=== PATIENT | male | born 1960 | race Caucasian/White ===

== ENCOUNTER 2016-04-25 19:24 | Emergency (ER) | payer SELFPAY ==
[~2016-04-25] VITALS: Ht 185.4 cm; Wt 100.0 kg
[2016-04-25 19:31] VITALS: BP 134/78; PULSE 96; RESP 18; TEMP 97.8; O2SAT 95
--- NOTE | 2016-04-25 19:57 | PD ---
HPI Chief Complaint: Alcohol/Drug Intoxication Time Seen by Provider: 19:50 Travel History International Travel<30 days: No Contact w/Intl Traveler<30days: No Traveled to known affect area: No History of Present Illness HPI 55-year-old male presents to the ED under Hart's act for evaluation. Patient is somnolent but arouses easily to voice and light touch. He is protecting his airway. He states that he had "a lot" to drink today. He endorses drinking "a lot" of alcohol every day. He is unable to provide any meaningful history. PFSH Past Medical History Hx Anticoagulant Therapy: No Anxiety: Yes Depression: Yes Cardiovascular Problems: No Chemotherapy: No Cerebrovascular Accident: No Diabetes: No Diminished Hearing: Yes Endocrine: No Gastrointestinal Disorders: Yes GERD: Yes Hepatitis: Yes ( 1979) Hypertension: Yes Neurologic: Yes Psychiatric: Yes Respiratory: No Immunizations Current: Yes Ulcer: Yes ?: Not Past Surgical History Hysterectomy: No Tonsillectomy: Yes Social History Alcohol Use: Yes (DRINKS BEER AND VODKA DAILY) Tobacco Use: Yes (1 PPD) Substance Use: Yes (CHRONIC ALCOHOL ABUSE) Allergies-Medications (Allergen,Severity, Reaction): Coded Allergies: No Known Allergies (Unverified , 11/09/15) Reported Meds & Prescriptions Reported Meds & Active Scripts Active No Active Prescriptions or Reported Medications Review of Systems ROS Limitations: Intoxication (unable to obtain a complete history secondary to intoxication) Physical Exam Narrative GENERAL: Well-nourished, well-developed Dr. Payne white male in no acute distress. SKIN: Warm and dry. HEAD: Normocephalic. Atraumatic. EYES: No scleral icterus. No injection or drainage. Pupils 4 mm and reactive bilaterally Dental: Poor dentition, multiple missing teeth. Protecting the airway. NECK: Supple, trachea midline. No JVD or lymphadenopathy. CARDIOVASCULAR: Regular rate and rhythm without murmurs, gallops, or rubs. 2+ DP and radial pulses bilaterally. RESPIRATORY: Breath sounds clear and equal bilaterally. No accessory muscle use. GASTROINTESTINAL: Abdomen soft, non-tender, nondistended. Active bowel sounds MUSCULOSKELETAL: No cyanosis, or edema. BACK: No obvious deformity. No CVA tenderness. Data Data Last Documented VS Vital Signs Date Time Temp Pulse Resp B/P Pulse Ox O2 Delivery O2 Flow Rate FiO2 04/25/16 19:31 97.8 96 18 134/78 95 Orders Valproic Acid (Depakene) (04/25/16 19:58) Drug Screen, Random Urine (04/25/16 19:58) Alcohol (Ethanol) (04/25/16 19:58) Labs Laboratory Tests Test 04/25/16 04/25/16 20:00 20:05 Urine Opiates Screen NEG Urine Barbiturates Screen NEG Urine Amphetamines Screen NEG Urine Benzodiazepines Screen NEG Urine Cocaine Screen NEG Urine Cannabinoids Screen NEG Valproic Acid (Depakene) Level 4 MCG/ML Ethyl Alcohol Level 240 MG/DL MDM Medical Decision Making Medical Screen Exam Complete: Yes Emergency Medical Condition: Yes Differential Diagnosis Acute alcohol intoxication versus alcohol dependence versus Adjustment disorder versus anxiety versus bipolar versus depression versus dementia versus electrolyte disorder versus malingering versus mood disorder versus ODD versus psychosis versus PTSD versus schizophrenia versus schizoaffective disorder versus substance-induced mood disorder versus other Narrative Course 55-year-old male presents to the ED under Hart's act for evaluation. Patient is somnolent but arouses easily to voice and light touch. He states that he had "a lot" to drink today. He endorses drinking "a lot" of alcohol every day. He is unable to provide any meaningful history. Vitals reviewed. Physical exam reveals an intoxicated white male in no acute distress. Head normocephalic, atraumatic. Pupils are 4 mm, reactive bilaterally. He does respond when questioned. He is protecting his airway. CTAB, abdomen soft, nontender. Equal distal pulses bilaterally. Tox screen negative Etoh 240 Valproic acid <4 Patient sleeping, snoring loudly on recheck. We'll continue to monitor the patient in the ED, reevaluate for sobriety before discharge. Diagnosis Primary Impression: Alcohol intoxication Qualified Code: F10.120 - Alcohol intoxication, uncomplicated Referrals: [facility] (Out patient) Additional Instructions: Seek outpatient treatment for your chronic alcoholism. Return to the ED for any urgent or emergent medical condition. Scripts No Active Prescriptions or Reported Meds Disposition: 01 DISCHARGE HOME Condition: Stable Shani Dougherty Apr 25, 2016 19:56
[2016-04-25 20:35] LABS: AMPHETAMINE, URINE NEG (NEG); BARBITURATES, URINE NEG (NEG); COCAINE, URINE NEG (NEG)
[2016-04-26 02:29] VITALS: BP 132/78; PULSE 70; RESP 18; O2SAT 99
== END 2016-04-26 06:19 | disposition home or self-care (01) ==
LOC: NEPA 19:24
DX: F10.120 Alcohol abuse with intoxication, uncomplicated (principal); I10 Essential (primary) hypertension; F17.210 Nicotine dependence, cigarettes, uncomplicated
CPT/HCPCS: 80164; 80307; 80320; 99284

== ENCOUNTER 2016-05-03 21:37 | Emergency (ER) | payer SELFPAY ==
[~2016-05-03] VITALS: Ht 185.4 cm; Wt 102.0 kg
[2016-05-03 21:40] VITALS: BP 131/83; PULSE 76; RESP 18; TEMP 97.9; O2SAT 96
--- NOTE | 2016-05-03 22:05 | PD ---
HPI Chief Complaint: Alcohol/Drug Intoxication Time Seen by Provider: 21:41 Travel History International Travel<30 days: No Contact w/Intl Traveler<30days: No Traveled to known affect area: No History of Present Illness HPI 55-year-old male arrives to the ER by EMS. He had an unsteady gait in public. He was observed to have slurred speech. He reports drinking about a liter of rum today. He started at 7 AM. His arrival time to the ER was about 9:30PM. Patient denies drug abuse. PFSH Past Medical History Hx Anticoagulant Therapy: No Anxiety: Yes Depression: Yes Cardiovascular Problems: No Chemotherapy: No Cerebrovascular Accident: No Diabetes: No Diminished Hearing: Yes Endocrine: No Gastrointestinal Disorders: Yes GERD: Yes Hepatitis: Yes ( , 1979) Hypertension: Yes Neurologic: Yes Psychiatric: Yes Respiratory: No Immunizations Current: Yes Ulcer: Yes ?: Not Past Surgical History Hysterectomy: No Tonsillectomy: Yes Social History Alcohol Use: Yes (DRINKS BEER AND VODKA DAILY) Tobacco Use: Yes (1 PPD) Substance Use: Yes (CHRONIC ALCOHOL ABUSE) Allergies-Medications (Allergen,Severity, Reaction): Coded Allergies: No Known Allergies (Unverified , 11/09/15) Reported Meds & Prescriptions Reported Meds & Active Scripts Active No Active Prescriptions or Reported Medications Review of Systems Except as stated in HPI: all other systems reviewed are Neg General / Constitutional: No: Fever, Chills Psychiatric: Positive: Substance Abuse, No: Suicidal Ideations Physical Exam Narrative GENERAL: 55-year-old male pleasant no acute distress EtOH on breath slurred speech consistent with EtOH intox SKIN: Warm and dry. HEAD: Atraumatic. Normocephalic. EYES: Pupils equal and round. No scleral icterus. No injection or drainage. ENT: No nasal bleeding or discharge. Mucous membranes pink and moist. NECK: Trachea midline. No JVD. CARDIOVASCULAR: Regular rate and rhythm. No murmur appreciated. RESPIRATORY: No accessory muscle use. Clear to auscultation. Breath sounds equal bilaterally. GASTROINTESTINAL: Abdomen soft, non-tender, nondistended. Hepatic and splenic margins not palpable. MUSCULOSKELETAL: No obvious deformities. No clubbing. No cyanosis. No edema. NEUROLOGICAL: Awake and alert. No obvious cranial nerve deficits. Motor grossly within normal limits. Slurred speech c/w EtOH intox. PSYCHIATRIC: Alcoholism. No suicidal ideation or homicidal. Data Data Last Documented VS Vital Signs Date Time Temp Pulse Resp B/P Pulse Ox O2 Delivery O2 Flow Rate FiO2 05/03/16 21:40 97.9 76 18 131/83 96 VS reviewed MDM Medical Decision Making Medical Screen Exam Complete: Yes Emergency Medical Condition: Yes Medical Record Reviewed: Yes Differential Diagnosis Alcoholism, alcohol intoxication, alcohol withdrawal syndrome Narrative Course Pt is an alcoholic who arrives intoxicated with alcohol. He drank 1L rum today like he does every day. He is speaking in full sentences now. He'll be observed here, in the Alpha pod if necessary. When ambulatory with steady gait he can leave per his own volition. Diagnosis Primary Impression: Alcohol abuse Referrals: [facility] days Additional Instructions: You have a choice when it comes to health care, and we are glad that you chose [facility]. Hopefully, we have met your expectations on today's visit. You are welcome to return to [facility] at any time, as we are committed to meeting the health care needs of our community. Med/Other Pt SpecificInfo: No Change to Meds Scripts No Active Prescriptions or Reported Meds Disposition: 01 DISCHARGE HOME Condition: David Alvarez MD May 03, 2016 22:05
== END 2016-05-04 06:23 | disposition home or self-care (01) ==
LOC: NEPC 21:37 → NEPA 05-04 06:23
DX: F10.10 Alcohol abuse, uncomplicated (principal); F32.9 Major depressive disorder, single episode, unspecified; K21.9 Gastro-esophageal reflux disease without esophagitis; I10 Essential (primary) hypertension; F17.200 Nicotine dependence, unspecified, uncomplicated
CPT/HCPCS: 99284

== ENCOUNTER 2016-05-27 17:04 | Emergency (ER) | payer SELFPAY ==
--- NOTE | 2016-05-27 19:04 | PD ---
HPI Chief Complaint: Fall Time Seen by Provider: 19:04 Travel History International Travel<30 days: No Contact w/Intl Traveler<30days: No Traveled to known affect area: No History of Present Illness HPI 55-year-old male with a history of alcohol abuse presents to the emergency room by EMS for evaluation of alcohol intoxication and head injury. Patient states that he was drinking alcohol today, unsure how much but states it was "a lot." States that he lost his balance and fell hitting the front of his head. Unsure of loss of consciousness. Complains of pain around his forehead. Also complaining of pain in his neck. Denies any numbness or tingling, weakness, vision loss, nausea, vomiting, chest pain, shortness of breath, abdominal pain. Denies any anticoagulation. No other complaints. PFSH Past Medical History Hx Anticoagulant Therapy: No Anxiety: Yes Depression: Yes Diminished Hearing: Yes Gastrointestinal Disorders: Yes GERD: Yes Hepatitis: Yes ( , 1979) Hypertension: Yes Neurologic: Yes Psychiatric: Yes Immunizations Current: Yes Ulcer: Yes Tetanus Vaccination: < 5 Years Past Surgical History Hysterectomy: No Tonsillectomy: Yes Social History Alcohol Use: Yes (pt state "A lot of Rum today" daily ETOH) Tobacco Use: Yes (1 PPD) Substance Use: Yes (CHRONIC ALCOHOL ABUSE) Allergies-Medications (Allergen,Severity, Reaction): Coded Allergies: No Known Allergies (Unverified , 05/27/16) Reported Meds & Prescriptions Reported Meds & Active Scripts Active No Active Prescriptions or Reported Medications Review of Systems Except as stated in HPI: all other systems reviewed are Neg Physical Exam Narrative GENERAL: Well-nourished and well-developed male patient in no acute distress. Smells of Etoh. SKIN: No obvious lacerations or abrasions noted. HEAD: Normocephalic and atraumatic. No hematoma or contusions noted but complaining of tenderness to palpation of forehead. EYES: No scleral icterus, injection, or drainage. PERRLA. EOMI. No hyphema present. ENT: No septal hematoma or hemotympanum noted. Oropharynx is clear and the airway is patent. NECK: Supple and the trachea is midline. No obvious deformities, crepitus, or midline tenderness noted. CARDIOVASCULAR: Regular rate and rhythm. RESPIRATORY: Breath sounds are equal bilaterally with no accessory muscle use, wheezing, rhonchi, or crackles. GASTROINTESTINAL: Abdomen is soft, non-tender, and nondistended. MUSCULOSKELETAL: No obvious deformities, swelling, cyanosis, or ecchymosis is present throughout the upper and lower extremities. Patient has full range of motion without any signs of neurovascular compromise. Strength 5/5 upper and lower extremities equal bilaterally. NEUROLOGICAL: Awake, alert, and oriented. Normal speech and gait. Cranial nerves are grossly intact. Data Data Last Documented VS Vital Signs Date Time Temp Pulse Resp B/P Pulse Ox O2 Delivery O2 Flow Rate FiO2 05/27/16 20:29 98.5 78 16 97/[address] Brain W/O Iv Contrast(Rout) (05/27/16 19:03) Ct Cerv Spine W/O Contrast (05/27/16 19:03) Apply Cervical Collar (05/27/16 19:03) MDM Medical Decision Making Medical Screen Exam Complete: Yes Emergency Medical Condition: Yes Differential Diagnosis Alcohol intoxication versus minor head injury versus contusion versus intracranial hemorrhage Narrative Course 55-year-old male is brought to the emergency department for evaluation of alcohol intoxication and head injury. Patient is afebrile, vital signs are stable. No signs of traumatic injury. Patient does appear to be intoxicated. No focal neurologic deficits. Head and cervical spine CT imaging has been ordered and is pending. Head CT is negative for any acute abnormalities. Cervical spine CT is negative for any acute abnormalities. The patient will be allowed to sleep off the alcohol here in the emergency department. He is stable for discharge once he is found to be clinically sober. Diagnosis Primary Impression: Alcohol intoxication Qualified Code: F10.120 - Alcohol intoxication, uncomplicated Referrals: [facility] Patient Instructions: Alcohol Intoxication (ED), General Instructions Additional Instructions: Decrease your alcohol intake. Follow-up with your Primary Care Physician. Return to the ED for any acute worsening of symptoms. Med/Other Pt SpecificInfo: No Change to Meds Scripts No Active Prescriptions or Reported Meds Disposition: 01 DISCHARGE HOME Condition: Stable Lakshmi Duncan May 27, 2016 19:04
--- NOTE | 2016-05-27 19:54 | RADRPT ---
EXAM DATE/TIME: 05/27/2016 19:32 [facility] COMPARISON: CT BRAIN W/O CONTRAST, November 09, 2015, 4:05. INDICATIONS : Fell and hit back of head. RADIATION DOSE: 33.07 CTDIvol (mGy) MEDICAL HISTORY : Hepatitis B. Hypertension. SURGICAL HISTORY : None. ENCOUNTER: Initial ACUITY: 1 day PAIN SCALE: 9/10 LOCATION: cranial TECHNIQUE: Multiple contiguous axial images were obtained of the head. Using automated exposure control and adj ustment of the mA and/or kV according to patient size, radiation dose was kept as low as reasonably a chievable to obtain optimal diagnostic quality images. FINDINGS: CEREBRUM: The ventricles are normal for age. No evidence of midline shift, mass lesion, hemorrhage or acute in farction. No extra-axial fluid collections are seen. POSTERIOR FOSSA: The cerebellum and brainstem are intact. The 4th ventricle is midline. The cerebellopontine angle i s unremarkable. EXTRACRANIAL: The visualized portion of the orbits is intact. SKULL: The calvaria is intact. No evidence of skull fracture. CONCLUSION: No acute disease. Lito Moore MD on May 27, 2016 at 19:52 Board Certified Radiologist. This report was verified electronically.
--- NOTE | 2016-05-27 19:56 | RADRPT ---
EXAM DATE/TIME: 05/27/2016 19:32 [facility] COMPARISON: CT CERVICAL SPINE W/O CONTRAST, November 09, 2015, 4:05. INDICATIONS : Fell and hit back of head. RADIATION DOSE: 21.39 CTDIvol (mGy) MEDICAL HISTORY : Hepatitis B. Hypertension. SURGICAL HISTORY : None. ENCOUNTER: Initial ACUITY: 1 day PAIN SCALE: 9/10 LOCATION: neck TECHNIQUE: Volumetric scanning of the cervical spine was performed. Multiplanar reconstructions in the sagittal, coronal and oblique axial planes were performed. Using automated exposure control and adjustment o f the mA and/or kV according to patient size, radiation dose was kept as low as reasonably achievable to obtain optimal diagnostic quality images. FINDINGS: Normal alignment. No prevertebral soft tissue swelling or compression deformity. The odontoid process is intact. Severe disc space narrowing at C4-5 and C5-6 with mild endplate sclerosis, osteophytosis and uncovertebral hypertrophy. Cervicothoracic junction is approximated. There is a stable lucent les ion of the C6 vertebral body level. Carotid artery calcifications are noted. No fracture or listhesis . There is a stable central disc protrusion at C4-5 and mild to moderate canal stenosis is present. T here is severe stenosis at C6-7 secondary to a diffuse disc bulge. CONCLUSION: Stable degenerative changes are seen without evidence for acute fracture. Lito Moore MD on May 27, 2016 at 19:53 Board Certified Radiologist. This report was verified electronically.
[2016-05-27 20:29] VITALS: BP 97/53; PULSE 78; RESP 16; TEMP 98.5; O2SAT 97
[2016-05-28 00:46] VITALS: BP 112/56; PULSE 63; RESP 14; O2SAT 97
[2016-05-28 06:36] VITALS: BP 118/58
== END 2016-05-28 10:05 | disposition home or self-care (01) ==
LOC: NEPE 17:04 → NEPA 05-28 10:05
DX: F10.120 Alcohol abuse with intoxication, uncomplicated (principal); R51 Headache; M54.2 Cervicalgia; H91.90 Unspecified hearing loss, unspecified ear; I10 Essential (primary) hypertension; F17.200 Nicotine dependence, unspecified, uncomplicated; Z87.19 Personal history of other diseases of the digestive system; Z86.69 Personal history of other diseases of the nervous system and sense organs; Z86.59 Personal history of other mental and behavioral disorders; W18.39XA Other fall on same level, initial encounter
CPT/HCPCS: 70450; 72125

== ENCOUNTER 2016-07-24 21:47 | Emergency (ER) | payer SELFPAY ==
[~2016-07-24] VITALS: Ht 185.4 cm; Wt 110.0 kg
[2016-07-24 21:50] VITALS: BP 133/90; PULSE 91; RESP 18; TEMP 97.7; O2SAT 97
--- NOTE | 2016-07-24 22:01 | PD ---
HPI Chief Complaint: Fall Time Seen by Provider: 21:54 Travel History International Travel<30 days: No Contact w/Intl Traveler<30days: No Traveled to known affect area: No History of Present Illness HPI 55-year-old male complains of headache, neck pain, back pain, chest wall pain. Patient states that he [place] the [place]. Patient states that he fell onto the sand from a 6 feet height. Patient states that he probably had LOC. Patient states that he has mild aching headache, neck pain, more severe low back pain. Patient states that she has mild chest wall pain. Patient denies any visual change. Patient denies any shortness of breath. Patient denies abdominal pain. Patient denies any focal weakness or numbness of extremity. Patient denies any medical problem. Patient denies any routine medication. Patient denies any history of illicit drug abuse. PFSH Past Medical History Hx Anticoagulant Therapy: No Anxiety: Yes Depression: Yes Diminished Hearing: Yes Gastrointestinal Disorders: Yes GERD: Yes Hepatitis: Yes ( 1979) Hypertension: Yes Neurologic: Yes Psychiatric: Yes Immunizations Current: Yes Ulcer: Yes Influenza Vaccination: No Past Surgical History Hysterectomy: No Tonsillectomy: Yes Social History Alcohol Use: Yes (pt state "A lot of Rum today" daily ETOH) Tobacco Use: Yes (1 PPD) Substance Use: No Allergies-Medications (Allergen,Severity, Reaction): Coded Allergies: No Known Allergies (Unverified , 07/24/16) Reported Meds & Prescriptions Reported Meds & Active Scripts Active No Active Prescriptions or Reported Medications Review of Systems General / Constitutional: No: Fever Eyes: No: Visual changes HENT: No: Headaches Cardiovascular: No: Chest Pain or Discomfort Respiratory: No: Shortness of Breath Gastrointestinal: No: Abdominal Pain Genitourinary: No: Dysuria Musculoskeletal: No: Pain Skin: No Rash Neurologic: No: Weakness Psychiatric: No: Depression Endocrine: No: Polydipsia Hematologic/Lymphatic: No: Easy Bruising Physical Exam Narrative GENERAL: Well-nourished, well-developed patient. SKIN: Focused skin assessment warm/dry. Patient has several healing abrasions on the forehead. No soft tissue swelling noted. HEAD: Normocephalic. EYES: No scleral icterus. No injection or drainage. Pupils 3 mm equal reactive. NECK: Supple, trachea midline. No JVD or lymphadenopathy. Mild to moderate tenderness on palpation paraspinal areas cervical spine. No midline tenderness. CARDIOVASCULAR: Regular rate and rhythm without murmurs, gallops, or rubs. RESPIRATORY: Breath sounds equal bilaterally. No accessory muscle use. GASTROINTESTINAL: Abdomen soft, non-tender, nondistended. MUSCULOSKELETAL: No cyanosis, or edema. BACK: Patient has moderate tenderness on palpation thoracic lumbar area, without obvious deformity. No CVA tenderness. Negative straight leg raising. Neurologic exam: Patient's is lethargic however answer questions appropriately. Patient moves all extremities well. No obvious focal neurological deficit. Data Data Last Documented VS Vital Signs Date Time Temp Pulse Resp B/P Pulse Ox O2 Delivery O2 Flow Rate FiO2 07/24/16 21:50 97.7 91 18 133/90 97 Orders Complete Blood Count With Diff (07/24/16 21:55) Comprehensive Metabolic Panel (07/24/16 21:55) Prothrombin Time / Inr (Pt) (07/24/16 21:55) Act Partial Throm Time (Ptt) (07/24/16 21:55) Chest, Single Ap (07/24/16 21:55) Pelvis, Ap Only (Routine) (07/24/16 21:55) Iv Access Insert/Monitor (07/24/16 21:55) Ecg Monitoring (07/24/16 21:55) Oximetry (07/24/16 21:55) Alcohol (Ethanol) (07/24/16 21:55) Ct Brain W/O Iv Contrast(Rout) (07/24/16 21:55) Ct Cerv Spine W/O Contrast (07/24/16 21:55) Ct Thor Spine W/O Contrast (07/24/16 21:55) Ct Lumb Spine W/O Contrast (07/24/16 21:55) Ct Thorax/ Chest W Iv Contrast (07/24/16 23:09) Iohexol 350 Inj (Omnipaque 350 Inj) (07/24/16 23:42) Labs Laboratory Tests Test 07/24/16 22:00 White Blood Count 5.4 TH/MM3 Red Blood Count 4.21 MIL/MM3 Hemoglobin 14.8 GM/DL Hematocrit 42.1 % Mean Corpuscular Volume 100.0 FL Mean Corpuscular Hemoglobin 35.2 PG Mean Corpuscular Hemoglobin 35.1 % Concent Red Cell Distribution Width 13.6 % Platelet Count 90 TH/MM3 Mean Platelet Volume 8.1 FL Neutrophils (%) (Auto) 29.4 % Lymphocytes (%) (Auto) 57.8 % Monocytes (%) (Auto) 11.8 % Eosinophils (%) (Auto) 0.5 % Basophils (%) (Auto) 0.5 % Neutrophils # (Auto) 1.6 TH/MM3 Lymphocytes # (Auto) 3.1 TH/MM3 Monocytes # (Auto) 0.6 TH/MM3 Eosinophils # (Auto) 0.0 TH/MM3 Basophils # (Auto) 0.0 TH/MM3 CBC Comment AUTO DIFF Differential Total Cells 100 Counted Neutrophils % (Manual) 24 % Band Neutrophils % 2 % Lymphocytes % 64 % Monocytes % 9 % Basophils % 1 % Neutrophils # (Manual) 1.4 TH/MM3 Differential Comment FINAL DIFF MANUAL Atypical Lymphocytes % Platelet Estimate LOW Platelet Morphology Comment NORMAL Prothrombin Time 11.2 SEC Prothromb Time International 1.0 RATIO Ratio Activated Partial 26.8 SEC Thromboplast Time Sodium Level 141 MEQ/L Potassium Level 3.5 MEQ/L Chloride Level 105 MEQ/L Carbon Dioxide Level 24.0 MEQ/L Anion Gap 12 MEQ/L Blood Urea Nitrogen 6 MG/DL Creatinine 0.93 MG/DL Estimat Glomerular Filtration 85 ML/MIN Rate Random Glucose 108 MG/DL Calcium Level 8.1 MG/DL Total Bilirubin 0.4 MG/DL Aspartate Amino Transf 54 U/L (AST/SGOT) Alanine Aminotransferase 34 U/L (ALT/SGPT) Alkaline Phosphatase 85 U/L Total Protein 8.1 GM/DL Albumin 3.9 GM/DL Ethyl Alcohol Level 278 MG/DL MDM Medical Decision Making Medical Screen Exam Complete: Yes Emergency Medical Condition: Yes Interpretation(s) Last Impressions Thoracic Spine CT 07/24/162154 Signed Impressions: Service Date/Time: Sunday, July 24, 2016 22:12 - CONCLUSION: Minimally displaced fractures at the left first and second rib costovertebral junctions. No evidence of spinal fracture Delroy Dixon MD Pelvis X-Ray [id number] Signed Impressions: Service Date/Time: Sunday, July 24, 2016 22:23 - CONCLUSION: Unremarkable examination of the pelvis. Delroy Dixon MD Lumbar Spine CT [id number] Signed Impressions: Service Date/Time: Sunday, July 24, 2016 22:16 - CONCLUSION: No acute bony injury in the lumbar spine. Left pelvic mass. Recommend further evaluation with standard CT pelvis with contrast Delroy Dixon MD Head CT [id number]/[id number] Signed Impressions: Service Date/Time: Sunday, July 24, 2016 22:07 - CONCLUSION: Normal examination. Delroy Dixon MD Chest X-Ray [id number] Signed Impressions: Service Date/Time: Sunday, July 24, 2016 22:25 - CONCLUSION: No acute disease. Delroy Dixon MD Cervical Spine CT 07/[id number] Signed Impressions: Service Date/Time: Sunday, July 24, 2016 22:09 - CONCLUSION: No acute bony injury to cervical spine. Disc disease and bony spondylosis most notably at C4- 5 and C5-6. Delroy Dixon MD 23:13 PM. CBC with WBC 5.4. Hemoglobin 14.8 hematocrit 42.1. Platelet 90. 57 lymphocytes. 12:28 AM. Alcohol 278 Differential Diagnosis Differential diagnosis including head injury, neck injury, back injury, chest wall injury, extremity injury. Narrative Course 55-year-old male complains of headache, neck pain, back pain, chest wall pain. Status post fall from 6 feet height onto the sand. Patient admitted to alcohol consumption today. Diagnosis Primary Impression: Fracture of rib of left side Qualified Code: S22.42XA - Closed fracture of multiple ribs of left side, initial encounter Additional Impressions: Multiple contusions Alcohol intoxication Qualified Code: F10.920 - Alcohol intoxication, uncomplicated Patient Instructions: General Instructions Additional Instructions: Ibuprofen as needed for pain. Follow-up with local physician. Return if worse. Advised [facility]. Med/Other Pt SpecificInfo: Prescription(s) given Scripts Ibuprofen 600 Mg [id number] Mg PO Q8HR PRN (PAIN) #60 TAB Prov:Andres Lyon MD 07/25/16 Disposition: 01 DISCHARGE HOME Condition: Stable Andres Lyon MD July 24, 2016 22:01
[2016-07-24 22:25] LABS: AUTOMATED NEUTROPHIL # 1.6 TH/MM3 (1.8-7.7); BASOPHIL % 0.5 % (0.0-2.0); EOSINOPHIL % 0.5 % (0.0-4.0); HEMATOCRIT 42.1 % (39.0-51.0); LYMPH % 57.8 % (9.0-44.0); LYMPHOCYTE # 3.1 TH/MM3 (1.0-4.8); MEAN CORPUSCULAR HEMOGLOBIN 35.2 PG (27.0-34.0); MEAN CORPUSCULAR HGB CONC 35.1 % (32.0-36.0); MONO % 11.8 % (0.0-8.0); NEUT % 29.4 % (16.0-70.0); PLATELET COUNT 90 TH/MM3 (150-450); RED BLOOD COUNT 4.21 MIL/MM3 (4.50-5.90); RED CELL DISTRIBUTION WIDTH 13.6 % (11.6-17.2); WHITE BLOOD COUNT 5.4 TH/MM3 (4.0-11.0)
[2016-07-24 22:28] LABS: HEMO FLAGS AUTO DIFF
[2016-07-24 22:36] LABS: APTT (PATIENT) 26.8 SEC (24.3-30.1); PROTHROMBIN TIME - PATIENT 11.2 SEC (9.8-11.6)
--- NOTE | 2016-07-24 22:37 | RADRPT ---
EXAM DATE/TIME: 07/24/2016 22:25 [facility] COMPARISON: CHEST SINGLE AP, August 10, 2015, 15:14. INDICATIONS : Trauma to chest post fall from standing height today MEDICAL HISTORY : None. SURGICAL HISTORY : None. ENCOUNTER: Initial ACUITY: 1 day PAIN SCORE: 0/10 LOCATION: Bilateral chest FINDINGS: A single view of the chest demonstrates the lungs to be symmetrically aerated without evidence of mas s, infiltrate or effusion. The cardiomediastinal contours are unremarkable. Osseous structures are intact. CONCLUSION: No acute disease. Delroy Dixon MD on July 24, 2016 at 22:34 Board Certified Radiologist. This report was verified electronically.
--- NOTE | 2016-07-24 22:39 | RADRPT ---
EXAM DATE/TIME: 07/24/2016 22:23 [facility] COMPARISON: No previous studies available for comparison. INDICATIONS : Trauma to pelvis post fall from standing height today MEDICAL HISTORY : None. SURGICAL HISTORY : None. ENCOUNTER: Initial ACUITY: 1 day PAIN SCORE: 0/10 LOCATION: Pelvis FINDINGS: A single frontal view of the pelvis demonstrates no evidence of fracture. The bony pelvic ring is in tact. Bony mineralization is normal. The soft tissues are intact. CONCLUSION: Unremarkable examination of the pelvis. Delroy Dixon MD on July 24, 2016 at 22:37 Board Certified Radiologist. This report was verified electronically.
--- NOTE | 2016-07-24 22:41 | RADRPT ---
EXAM DATE/TIME: 07/24/2016 22:07 [facility] COMPARISON: CT BRAIN W/O CONTRAST, May 27, 2016, 19:32. INDICATIONS : Trauma, fall. RADIATION DOSE: 56.35 CTDIvol (mGy) MEDICAL HISTORY : Hypertension. Hepatitis B. SURGICAL HISTORY : None. ENCOUNTER: Initial ACUITY: 1 day PAIN SCALE: 10/10 LOCATION: cranial TECHNIQUE: Multiple contiguous axial images were obtained of the head. Using automated exposure control and adj ustment of the mA and/or kV according to patient size, radiation dose was kept as low as reasonably a chievable to obtain optimal diagnostic quality images. FINDINGS: CEREBRUM: The ventricles are normal for age. No evidence of midline shift, mass lesion, hemorrhage or acute in farction. No extra-axial fluid collections are seen. POSTERIOR FOSSA: The cerebellum and brainstem are intact. The 4th ventricle is midline. The cerebellopontine angle i s unremarkable. EXTRACRANIAL: The visualized portion of the orbits is intact. SKULL: The calvaria is intact. No evidence of skull fracture. CONCLUSION: Normal examination. Delroy Dixon MD on July 24, 2016 at 22:38 Board Certified Radiologist. This report was verified electronically.
--- NOTE | 2016-07-24 22:45 | RADRPT ---
EXAM DATE/TIME: 07/24/2016 22:09 [facility] COMPARISON: No previous studies available for comparison. INDICATIONS : Trauma, fall. RADIATION DOSE: 40.44 CTDIvol (mGy) MEDICAL HISTORY : Hypertension. Hepatitis B. SURGICAL HISTORY : None. ENCOUNTER: Initial ACUITY: 1 day PAIN SCALE: 10/10 LOCATION: neck TECHNIQUE: Volumetric scanning of the cervical spine was performed. Multiplanar reconstructions in the sagittal, coronal and oblique axial planes were performed. Using automated exposure control and adjustment o f the mA and/or kV according to patient size, radiation dose was kept as low as reasonably achievable to obtain optimal diagnostic quality images. FINDINGS: Cervical spine alignment is satisfactory. There is no evidence of cervical spine fracture. There is d egenerative change with disc space narrowing and endplate osteophyte formation most significantly at C4-5 and C5-6 with some associated disc disease present and at least slight dorsal canal compromise a ssociated. CONCLUSION: No acute bony injury to cervical spine. Disc disease and bony spondylosis most notably at C4-5 and C5 -6. Delroy Dixon MD on July 24, 2016 at 22:41 Board Certified Radiologist. This report was verified electronically.
--- NOTE | 2016-07-24 22:51 | RADRPT ---
EXAM DATE/TIME: 07/24/2016 22:12 [facility] COMPARISON: No previous studies available for comparison. INDICATIONS : Trauma, fall. RADIATION DOSE: 20.18 CTDIvol (mGy) ; Combined studies - Thoracic Spine/Lumbar Spine MEDICAL HISTORY : Hypertension. Hepatitis B. SURGICAL HISTORY : None. ENCOUNTER: Initial ACUITY: 1 day PAIN SCALE: 10/10 LOCATION: Paraspinal TECHNIQUE: Volumetric scanning of the thoracic spine was performed. Multiplanar reconstructions in the sagittal , coronal and oblique axial planes were performed. Using automated exposure control and adjustment o f the mA and/or kV according to patient size, radiation dose was kept as low as reasonably achievable to obtain optimal diagnostic quality images. FINDINGS: Thoracic spine alignment is satisfactory. There is no evidence of thoracic spine fracture. No bony ca nal or foraminal stenosis is noted. There are minimally displaced fractures at the left first and sec ond rib costovertebral junctions. There are healed fractures involving the medial right ninth and 10t h ribs. There is no evidence of paraspinal hematoma. CONCLUSION: Minimally displaced fractures at the left first and second rib costovertebral junctions. No evidence of spinal fracture Delroy Dixon MD on July 24, 2016 at 22:45 Board Certified Radiologist. This report was verified electronically.
[2016-07-24 22:55] LABS: ANION GAP 12 MEQ/L (5-15)
--- NOTE | 2016-07-24 22:56 | RADRPT ---
EXAM DATE/TIME: 07/24/2016 22:16 [facility] COMPARISON: No previous studies available for comparison. INDICATIONS : Trauma, fall. RADIATION DOSE: 20.18 CTDIvol (mGy) ; Combined studies - Thoracic Spine/Lumbar Spine MEDICAL HISTORY : Hypertension. Hepatitis B. SURGICAL HISTORY : None. ENCOUNTER: Initial ACUITY: 1 day PAIN SCALE: 10/10 LOCATION: Paraspinal TECHNIQUE: Volumetric scanning of the lumbar spine was performed. Multiplanar reconstructions in the sagittal, coronal and oblique axial planes were performed. Using automated exposure control and adjustment of the mA and/or kV according to patient size, radiation dose was kept as low as reasonably achievable t o obtain optimal diagnostic quality images. FINDINGS: Lumbar spine alignment is satisfactory. There is no evidence of lumbar spine fracture. There is no ev idence of bony canal or foraminal compromise. There is a healed fracture involving the right second l umbar transverse process and an ununited fracture involving the right third transverse process which does not appear acute. There is mild degenerative change with disc space narrowing and endplate osteo phyte formation most significantly its L3-4 and L4-5. In the pelvis on the lowermost sections of the scan, there is a soft tissue density mass abutting the ventral surface of the sacrum and ilium at the level of the low SI joint on the left. Further evaluation with pelvic CT would be suggested. CONCLUSION: No acute bony injury in the lumbar spine. Left pelvic mass. Recommend further evaluation with standar d CT pelvis with contrast Delroy Dixon MD on July 24, 2016 at 22:49 Board Certified Radiologist. This report was verified electronically.
[2016-07-24 22:58] LABS: ALKALINE PHOSPHATASE 85 U/L (45-117); ALT (GPT) 34 U/L (12-78); AST (GOT) 54 U/L (15-37); BLOOD UREA NITROGEN 6 MG/DL (7-18); CHLORIDE 105 MEQ/L (98-107); GLOMERULAR FILTRATION RATE 85 ML/MIN (>89); POTASSIUM 3.5 MEQ/L (3.5-5.1); SODIUM (NA) 141 MEQ/L (136-145); TOTAL BILIRUBIN ADULT 0.4 MG/DL (0.2-1.0)
[2016-07-24 23:03] LABS: BANDS 2 % (0-6); BASOPHILS 1 % (0-2); NEUTROPHIL # MANUAL DIFF 1.4 TH/MM3 (1.8-7.7); PLATELET ESTIMATE SMEAR LOW (NORMAL); PLATELET MORPHOLOGY NORMAL (NORMAL); POLYS (SEG NEUTROPHILS) 24 % (16-70); SCAN/DIFF FINAL DIFF MANUAL; WBC DIFF SAMPLE 100
[2016-07-24] MEDS ORDERED: IOHEXOL 350 MG/ML 10 ML VIAL (for RAD DIAG) IV ONE (23:42)
--- NOTE | 2016-07-25 00:05 | RADRPT ---
EXAM DATE/TIME: 07/24/2016 23:42 [facility] COMPARISON: CT THORACIC SPINE W/O CONTRAST, July 24, 2016, 22:12. CHEST SINGLE AP, July 24, 2016, 22:25. INDICATIONS : Trauma. Fall with rib fractures. IV CONTRAST: 60 cc Omnipaque 350 (iohexol) IV RADIATION DOSE: 20.18 CTDIvol (mGy) MEDICAL HISTORY : Hypertension. SURGICAL HISTORY : None. ENCOUNTER: Initial ACUITY: 1 day PAIN SCALE: 8/10 LOCATION: posterior chest TECHNIQUE: Volumetric scanning of the chest was performed. Using automated exposure control and adjustment of t he mA and/or kV according to patient size, radiation dose was kept as low as reasonably achievable to obtain optimal diagnostic quality images. FINDINGS: LUNGS: There is no consolidation or pneumothorax. No concerning pulmonary nodule is visualized. PLEURA: There is no pleural thickening or pleural effusion. MEDIASTINUM: The heart and great vessels demonstrate no acute abnormality. There is no mediastinal or hilar lymph adenopathy. AXILLAE: Within normal limits. No lymphadenopathy. SKELETAL: Nondisplaced fractures involving the left first and second ribs at the costovertebral junction.. Ther e are some old healed fractures involving the posterior right lower ribs. There are some degenerative changes involving the thoracic spine. The rest of the bony structures are grossly intact. MISCELLANEOUS: The visualized upper abdominal organs demonstrate no acute abnormality. Fatty infiltration of the chidi er. CONCLUSION: 1. No acute intrathoracic disease. 2. Nondisplaced fractures of the first and second left ribs at the costovertebral junction. 3. Posterior there are old healed posterior right lower rib fractures.. Ramon Jones MD on July 24, 2016 at 23:56 Board Certified Radiologist. This report was verified electronically.
[2016-07-25] MEDS ORDERED: IBUP-232 PO (00:34)
[2016-07-25] MEDS ORDERED: IBUPROFEN 600 MG TAB PO ONE (00:45)
== END 2016-07-25 00:53 | disposition home or self-care (01) ==
LOC: NEPC 21:47
DX: S22.42XA Multiple fractures of ribs, left side, initial encounter for closed fracture (principal); T14.8 Other injury of unspecified body region; F10.129 Alcohol abuse with intoxication, unspecified; I10 Essential (primary) hypertension; F17.210 Nicotine dependence, cigarettes, uncomplicated; W17.89XA Other fall from one level to another, initial encounter; Y92.832 Beach as the place of occurrence of the external cause; Y90.8 Blood alcohol level of 240 mg/100 ml or more
CPT/HCPCS: 70450; 71010; 71260; 72125; 72128; 72131; 72170; 80053; 80307; 85007; 85027; 85610; 85730; 99284; Q9967

== ENCOUNTER 2016-10-12 13:10 | Emergency (ER) | payer SELFPAY ==
[~2016-10-12] VITALS: Ht 185.4 cm; Wt 100.0 kg
[~2016-10-12 13:10] MED LIST: IBUP-232 PO
[2016-10-12 13:13] VITALS: BP 109/75; PULSE 88; RESP 16; TEMP 97.8; O2SAT 97
--- NOTE | 2016-10-12 13:31 | PD ---
Physical Exam Time Seen by Provider: 13:30 Narrative 56 y/o male here with dizziness for the past few hours. Endorses alcohol consumption today. Vital signs reviewed. Seen at triage desk. Awaiting bed placement. Data Data Last Documented VS Vital Signs Date Time Temp Pulse Resp B/P Pulse Ox O2 Delivery O2 Flow Rate FiO2 10/12/16 13:13 97.8 88 16 109/75 97 MDM Medical Record Reviewed: Yes Supervised Visit with BERNICE: Jorge Villaseñor Oct 12, 2016 13:31
== END 2016-10-12 14:43 | disposition left against medical advice (07) ==
LOC: NED 13:10
DX: R42 Dizziness and giddiness (principal)
CPT/HCPCS: 99281